=== PATIENT | male | born 1980 | race Hispanic/Latino ===

== ENCOUNTER 2016-12-30 13:34 | Emergency (ER) | payer BC ==
[~2016-12-30] VITALS: Ht 162.6 cm; Wt 85.4 kg
[2016-12-30 14:11] LABS: HEMATOCRIT 47.9 % (38.0-50.0); MCH 29.4 PG (29.0-34.0); MCHC 33.4 G/DL (30.0-36.0); MCV 87.9 FL (86-99); MEAN PLAT.VOLUME 10.4 uM^3 (9.0-12.4); PLATELET COUNT 250 K/uL (156-360); RBC DIS.WIDTH-CV 12.4 % (11.8-14.6); RED BLOOD COUNT 5.45 M/uL (4.00-5.50); WHITE BLOOD COUNT 10.5 K/uL (4.1-10.2)
[2016-12-30 14:12] LABS: AMPHETAMINE NEGATIVE (500 ng/mL); BARBITURATES NEGATIVE (200 ng/mL); BENZODIAZEPINES NEGATIVE (150 ng/mL); COCAINE NEGATIVE (150 ng/mL); INTERNAL CONTROLS VALID? YES; METHADONE NEGATIVE (200 ng/mL); METHAMPHETAMINE NEGATIVE (500 ng/mL); OPIATES (MORPHINE) NEGATIVE (100 ng/mL); OXYCODONE NEGATIVE (100 ng/mL); PHENCYCLIDINE NEGATIVE (25 ng/mL); PROPOXYPHENE NEGATIVE (300 ng/mL); THC CANNABINOIDS NEGATIVE (50 ng/mL); TRICYCLIC ANTIDEPRESSANTS NEGATIVE (300 ng/mL)
[2016-12-30 14:19] LABS: CHLORIDE 106 mEq/L (99-109); POTASSIUM 4.1 mEq/L (3.7-5.4); SODIUM 141 mEq/L (136-147)
[2016-12-30 14:21] LABS: GLUCOSE 100 mg/dL (70-99)
[2016-12-30 14:22] LABS: ANION GAP 8 MEQ/L (2-14)
[2016-12-30 14:24] LABS: SERUM ETHYL ALCOHOL < 10 mg/dL
[2016-12-30 14:25] LABS: GFR ESTIMATE (CALCULATED) > 59 mL/min/
[2016-12-30 14:26] LABS: UREA NITROGEN (BUN) 14 mg/dL (9-23)
[2016-12-30] MEDS ORDERED: SEROQUEL50 MG PO (16:36)
[2016-12-30 17:11] VITALS: BP 120/67
== END 2016-12-30 17:13 | disposition home or self-care (01) ==
LOC: EME 13:34
DX: F22 Delusional disorders (principal); F29 Unspecified psychosis not due to a substance or known physiological condition
CPT/HCPCS: 80048; 85027; 90839; 99281; 99284; G0480